=== PATIENT | male | born 2000 | race Caucasian/White ===

== ENCOUNTER 2022-01-01 18:11 | Emergency (ER) | payer OTHER ==
[2022-01-01 18:59] LABS: #Basophils 0.1 10x3/uL (0.0-0.2); #Eosinphils 0.2 10x3/uL (0.0-0.5); #Monocytes 0.7 10x3/uL (0.0-1.1); #Neutrophils 3.7 10x3/uL (1.5-8.4); %Basophils 0.7 % (0.0-2.0); %Eosinophils 2.2 % (0.0-6.0); %Lymphocytes 32.7 % (18.0-47.0); %Monocytes 9.7 % (0.0-10.0); %Neutrophils 54.4 % (40.0-75.0); Hemoglobin 15.4 g/dL (13.5-17.5); Mean Corpuscular HGB CONC 35.2 g/dL (32.0-36.0); Mean Corpuscular Hemoglobin 29.4 pg (27.0-33.0); Mean Corpuscular Volume 83.7 fl (81.2-95.1); Mean Platelet Volume 10.1 fl (7.4-10.4); Platelet Count 246 10x3/uL (150-450); RBC Distribution Width 12.3 % (11.5-14.5); Red Blood Cell (RBC) Count 5.23 10x6/uL (4.32-5.72); White Blood Cell (WBC) Count 6.7 10x3/uL (3.5-10.5)
[2022-01-01 19:07] LABS: ALT (SGPT) 24 U/L (8-55); AST (SGOT) 17 U/L (5-34); Albumin 4.8 g/dL (3.5-5.0); Alkaline Phosphatase 59 U/L (50-130); Anion Gap 12 mmol/L (10-20); BUN (Urea Nitrogen) 10 mg/dL (8.9-20.6); Bilirubin, Total 0.6 mg/dL (0.2-1.2); Calc. Creatinine Clearance 0 mL/min (70-130); Calcium 9.8 mg/dL (7.8-10.44); Carbon Dioxide 31 mmol/L (22-29); Chloride 101 mmol/L (98-107); Glucose 98 mg/dL (70-105); Potassium 3.8 mmol/L (3.5-5.1); Protein, Total 7.8 g/dL (6.0-8.3); Sodium 140 mmol/L (136-145)
[2022-01-01] MEDS ORDERED: Prochlorperazine 10 MG/2 ML VIAL ONE (19:22)
[2022-01-01] MEDS ORDERED: diphenhydrAMINE 50 MG/ML VIAL ONE (19:22)
[2022-01-01] MEDS ORDERED: Ketorolac Tromethamine 30 MG/ML VIAL ONE (19:23)
[2022-01-01] MEDS ORDERED: Dexamethasone 10 MG/ML VIAL ONE (20:21)
== END 2022-01-01 21:04 | disposition home or self-care (01) ==
LOC: CSHERS 18:11
DX: G43.909 Migraine, unspecified, not intractable, without status migrainosus (principal)
CPT/HCPCS: 80053; 85025; 96374; 96375; J0780; J1100; J1200; J1885

== ENCOUNTER 2023-09-06 19:09 | Emergency (ER) | payer OTHER, SELFPAY ==
[2023-09-06] MEDS ORDERED: Prochlorperazine 10 MG/2 ML VIAL ONE (20:01)
[2023-09-06] MEDS ORDERED: diphenhydrAMINE 50 MG/ML VIAL ONE (20:01)
[2023-09-06] MEDS ORDERED: Magnesium Sulfate/D5W 1 GM/100 ML BAG ONE (20:02)
[2023-09-06] MEDS ORDERED: Ketorolac Tromethamine 30 MG/ML VIAL ONE (20:02)
[2023-09-06] MEDS ORDERED: Dexamethasone 10 MG/ML VIAL ONE (20:02)
== END 2023-09-06 21:40 | disposition home or self-care (01) ==
LOC: CSHERS 19:09
DX: G43.909 Migraine, unspecified, not intractable, without status migrainosus (principal)
CPT/HCPCS: 96365; 96375; J0780; J1100; J1200; J1885; J3475